=== PATIENT | male | born 1945 | race Caucasian/White ===

== ENCOUNTER 2019-04-21 12:20 | Emergency (ER) | payer MEDICARE ==
[2019-04-21 13:24] VITALS: BP 121/62
--- NOTE | 2019-04-21 13:28 | UC ---
Shoulder Pain HPI - HPI Summary HPI Summary: 73 y/o male presents to the urgent care c/o left shoulder pain s/p injury at work about 3 months ago. Pt reports he was tossing a trash bag into the back of a truck and suddenly he developed left shoulder pain. Left shoulder pain worsen about 1 months ago with radiation to his left bicep. He also c/o left side lower back spasms as well which started this week. He did see his PCP doctor who prescribed him muscle relaxers and suggested physical therapy. He has not gone to physical therapy as of today since he didn't do any X-ray. Pt reports pain is sharp w/ movement is 7/10, specially raising his arm. Pt has applied also ice and heat w/ mild relief. Pt denies fever, MERAZ, dizziness, SOB, chest pain, abdominal pain, saddle anesthesia, fecal or urinary incontinence, urinary symptoms, numbness or tingling sensation over the extremities, abdominal pain, N/V/D. BM is normal and appetite. - History of Current Complaint Chief Complaint: UCUpperExtremity Stated Complaint: LEFT SHOULDER PAIN/BACK SPASMS Time Seen by Provider: 04/21/19 13:26 Hx Obtained From: Patient Onset/Duration: Gradual Onset, Lasting Weeks - 3 months, Still Present, Worse Since - 1 month Timing: Intermittent Episode Lasting - hrs Severity Initially: Moderate Severity Currently: Moderate Location Of Pain: Is Discrete @ - left shoulder pain, Radiates To - left shoulder blade and neck w/ movement Pain Intensity: 8 Pain Scale Used: 0-10 Numeric Character: Spasmodic, Stiffness Aggravating Factor(s): Movement, Lifting, Abduction Alleviating Factor(s): Rest, Ice, OTC Meds - Naproxen PO. Last dose taken last night Associated Signs And Symptoms: Positive: Negative. Negative: Redness, Bruising , Fever, Weakness, Numbness/Tingling Related History: Dominant Hand Right - Risk Factors Non-Orthopedic Risk Factor: Negative DVT Risk Factors: Negative Septic Arthritis Risk Factor: Negative - Allergies/Home Medications Allergies/Adverse Reactions: Allergies Allergy/AdvReac Type Severity Reaction Status Date / Time No Known Allergies Allergy Verified 04/21/19 13:24 Home Medications: Home Medications Lisinopril TAB* [Prinivil TAB 10 MG*] 10 mg PO DAILY 04/21/19 [History Confirmed 04/21/19] Simvastatin 20 mg PO DAILY 04/21/19 [History Confirmed 04/21/19] metFORMIN* [Glucophage 500 MG TAB *] 500 mg PO BID 04/21/19 [History Confirmed 04/21/19] PMH/Surg Hx/FS Hx/Imm Hx Previously Healthy: Yes Endocrine History: Diabetes, Dyslipidemia Cardiovascular History: Hypertension - Surgical History Surgical History: Yes Surgery Procedure, Year, and Place: tonsillectomy as a child. cardiac cath about 12 years ago. - Family History Known Family History: Positive: Hypertension, Diabetes - Social History Occupation: Employed Full-time Lives: With Family Alcohol Use: Rare Substance Use Type: None Smoking Status (MU): Never Smoked Tobacco Review of Systems All Other Systems Reviewed And Are Negative: Yes Constitutional: Positive: Negative Skin: Positive: Negative Eyes: Positive: Negative ENT: Positive: Negative Respiratory: Positive: Negative Cardiovascular: Positive: Negative Gastrointestinal: Positive: Negative Genitourinary: Positive: Negative Motor: Positive: Negative Neurovascular: Positive: Negative Musculoskeletal: Positive: Decreased ROM - left shoulde and left side lower back , Other: - left shoulder pain and left side lower back Neurological: Positive: Negative Psychological: Positive: Negative Is Patient Immunocompromised?: No Physical Exam - Summary Physical Exam Summary: Vital Signs Reviewed: Yes GENERAL: Well-Appearing, No Pain Distress, Well-Nourished male w/o any apparent pain distress Eyes: Positive: Conjunctiva Clear - PERRL,EOMI ENT: Positive: Normal ENT inspection, Hearing grossly normal, Pharyngeal erythema - mild, Nasal drainage - clear, Uvula midline Neck: Positive: Supple, Nontender, No Lymphadenopathy Respiratory: Positive: Chest non-tender, Lungs clear, Normal breath sounds, No respiratory distress Cardiovascular: Positive: RRR, No Murmur, Pulses Normal, Brisk Capillary Refill Abdomen Description: Positive: Nontender, No Organomegaly, Soft. Negative: CVA Tenderness (R), CVA Tenderness (L) Bowel Sounds: Positive: Present Musculoskeletal: LF shoulder: The L shoulder is without obvious asymmetry or deformity when compared to the R shoulder. posterior shoulder w/ ecchymosis and bruising, no crepitus. No bony deformity or prominence of humeral head. No erythema, warmth. No Point Tenderness to palpation over the clavicle, or scapula. positive tenderness over Acromioclavicular joint and humeral head with mild swelling, NT to palpation of the bicipital groove . NT to palpation of the muscles of the sternocleidomastoid, pectoralis, biceps/triceps, deltoid, trapezius, . Limited ROM due to pain especially in adduction and abduction.on both passive and active, internal/external rotation, flexion/extension. "empty can and drop arm test unable to perform due to pain. No axillary tenderness or lymphadenopathy. Normal sensation over the deltoid and fingers. Distal motor and neurovascular status is intact. Back: Strength Intact, No signs of limping, antalgic, able to bear weight. No signs of trauma, No masses palpated. Point tenderness at the level of L4-L5, left side paraspinal muscle tenderness and spasm at the same level. scoliosis observed. No CVAT, no flank ecchymosis . No sacroiliac notch tenderness, No saddle anesthesia.ROM: limited due to pain, Straight Leg Raise: negative. Patellar reflexes: brisk, symmetric Muscle strength lower extremities. Dorsiflexion/ plantar flexion of ankles. Heel/ toe walk. Lower extremities: Femoral, popliteal, posterior tibial, and dorsalis pedis pulses WNL. Pt refuse rectal exam Neurological Exam: Normal Psychological Exam: Normal Skin Exam: Normal Triage Information Reviewed: Yes Vital Signs: Initial Vital Signs Temp 98.4 F 04/21/19 13:16 Pulse 59 04/21/19 13:16 Resp 28 04/21/19 13:16 BP 121/62 04/21/19 13:16 Pulse Ox 100 04/21/19 13:16 Shoulder Course/Dx - Course Course Of Treatment: 73 y/o male presents to the urgent care c/o left shoulder pain s/p injury at work about 3 months ago. Pt reports he was tossing a trash bag into the back of a truck and suddenly he developed left shoulder pain. Left shoulder pain worsen about 1 months ago with radiation to his left bicep. He also c/o left side lower back spasms as well which started this week. He did see his PCP doctor who prescribed him muscle relaxers and suggested physical therapy. He has not gone to physical therapy as of today since he didn't do any X-ray. Pt reports pain is sharp w/ movement is 7/10, specially raising his arm. Pt has applied also ice and heat w/ mild relief. Pt denies fever, MERAZ, dizziness, SOB, chest pain, abdominal pain, saddle anesthesia, fecal or urinary incontinence, urinary symptoms, numbness or tingling sensation over the extremities, abdominal pain, N/V/D. BM is normal and appetite. Hx obtained. Pt given Tylenol PO by the nurse for pain. Pt tolerated well medication. Left shoulder X-ray ordered: REPORT AND IMPRESSION: #. Mild LEFT convex curve centered at the L3 level. Straightening relative to normal cervical lordosis without spondylolisthesis at any level. #. Negative for fracture or visualized spondylolysis. #. Multilevel degenerative spondylosis and facet joint osteoarthritis asymmetric secondary to mild levoscoliosis. Disc space narrowing is moderately severe at L4-L5. #. Unremarkable paraspinal soft tissue contours. Lower Lumbosacral X-ray ordered: REPORT AND IMPRESSION: #. Negative for fracture. Bone density appears decreased throughout. #. Normal acromioclavicular and glenohumeral joint alignment. #. Moderate acromioclavicular and glenohumeral joint osteoarthritis. Moderate glenohumeral joint space narrowing and mild subchondral sclerosis at the glenoid. Small inferior acromial bone spur. #. Reactive sclerosis and cystic change at the greater tuberosity typically seen in setting of chronic rotator cuff pathology. #. Negative for calcific tendinopathy. Unremarkable soft tissue contours as per radiologist. Pt's advised to continue taking Naproxen PO and Rx Wanda Po for night time to be able to sleep and Flexeril PO as directed belwo to alleviate muscle spasm. Shoulder immobilized with a shoulder sling for 2-3 days. Advised to wear a back support and avoid heavy lifiting or strenupous exercised. Strongly advised to f/u w/ Spinal [facility]Urse Navigator for f/u with Spinal specialist for his DDD on the lumbar spina and to f/u w/ Orthopedic DR Long for further management in his Rotator cuff pathology and osteoarthritis. D/c instructions explained. Pt understood and agreed w/ plan of care an left clinic ambulating, and hemodynamically stable, A&OX3 - Differential Dx/Diagnosis Differential Diagnosis/HQI/PQRI: Arthritis, Dislocation, Fracture (Closed), Rotator Cuff Injury, Sprain, Strain, Tendonitis Provider Diagnosis: Left shoulder pain, Osteoarthritis of left shoulder, Rotator cuff arthropathy, Low back strain, Degenerative disc disease, lumbar, Muscle spasm Discharge ED - Sign-Out/Discharge Documenting (check all that apply): Patient Departure - D/C home All imaging exams completed and their final reports reviewed: Yes - Discharge Plan Condition: Stable Disposition: HOME Prescriptions: Cyclobenzaprine TAB* [Flexeril 10 MG TAB*] 10 mg PO TID PRN #21 tab PRN Reason: Spasms - Back HYDROcodone/ACETAMIN 5-325 MG* [Wanda 5-325 TAB*] 1 tab PO Q8H PRN #9 tab MDD 1g /4hr-4g/day PRN Reason: moderate pain Patient Education Materials: Rotator Cuff Tendinitis (ED), Low Back Strain (ED) , Degenerative Disc Disease (ED) Forms: *Work Release Referrals: Jared Reilly PA [Primary Care Provider] - 3 Days Karthik Long MD [Medical Doctor] - 2 Days Deanne Adkins Ae RN [Registered Nurse] - 3 Days Additional Instructions: 1- Please take Naproxen PO as directed after meals for pain. Take Wanda PO as directed or at night time to alleviate symptoms 2- Take Flexeril PO as directed for muscle spasm. Please do not drive while taking the medication. 3- Avoid strenuous exercise or heavy lifting. Please wear a back support 4- Please call Spinal Nurse Navigator: Ramila Adkins: [phone] for further management of your Degenerative disc disease and herniated discs. 5-Please apply ice, keep your shoulder immobilized with the shoulder sling for 3 -4 days and then resume movement slowly 6- Please f/u with Orthopedic Dr Long or your PCP in 3 days if not improvement of symptoms for further evaluation and treatment. - Billing Disposition and Condition Condition: STABLE Disposition: Home
[2019-04-21] MEDS ORDERED: Acetaminophen TAB* 325 MG PO ONE (13:56)
== END 2019-04-21 15:53 | disposition home or self-care (01) ==
LOC: UCCORT 12:20
DX: M19.012 Primary osteoarthritis, left shoulder (principal); M12.9 Arthropathy, unspecified; M62.830 Muscle spasm of back; S39.012A Strain of muscle, fascia and tendon of lower back, initial encounter; X50.0XXA Overexertion from strenuous movement or load, initial encounter; Y93.89 Activity, other specified; Y92.89 Other specified places as the place of occurrence of the external cause; Y99.0 Civilian activity done for income or pay; M51.36 Other intervertebral disc degeneration, lumbar region; E11.9 Type 2 diabetes mellitus without complications; Z79.84 Long term (current) use of oral hypoglycemic drugs; E78.5 Hyperlipidemia, unspecified; I10 Essential (primary) hypertension
CPT/HCPCS: 72110; 99213; A9270-GY; G0463